=== PATIENT | male | born 1960 | race African-American/Black ===

== ENCOUNTER 2020-06-16 12:56 | Emergency (ER) | payer OTHER ==
[~2020-06-16 12:56] MED LIST: BREO ELLIPTA 11 EACH INH; COQ-1030 MG PO; COREG 3.125M3.125 MG PO; COREG 6.25MG6.25 MG PO; CYCLOBENZAPRINE10 MG PO; FLONASE ALLER15.8 ML INH; ISMO20 MG PO; LASIX20 MG PO; LISINOPRIL 10MG10 MG PO; PROTONIX 40MG T40 MG PO; VENTOLIN HFA IN18 GM INH; VITAMIN D-32000 UNIT PO; XARELTO10 MG PO
== END 2020-06-16 14:55 | disposition home or self-care (01) ==
LOC: FER 12:56
DX: S09.90XA Unspecified injury of head, initial encounter (principal); S20.211A Contusion of right front wall of thorax, initial encounter; S50.01XA Contusion of right elbow, initial encounter; J44.9 Chronic obstructive pulmonary disease, unspecified; I11.0 Hypertensive heart disease with heart failure; I50.9 Heart failure, unspecified; G47.33 Obstructive sleep apnea (adult) (pediatric); F17.290 Nicotine dependence, other tobacco product, uncomplicated; Z86.711 Personal history of pulmonary embolism; Z86.718 Personal history of other venous thrombosis and embolism; Z99.89 Dependence on other enabling machines and devices; Z88.0 Allergy status to penicillin; Z88.8 Allergy status to other drugs, medicaments and biological substances; W00.0XXA Fall on same level due to ice and snow, initial encounter; Y92.009 Unspecified place in unspecified non-institutional (private) residence as the place of occurrence of the external cause
CPT/HCPCS: 70450; 71250; 73080